=== PATIENT | male | born 1985 | race Caucasian/White ===

== ENCOUNTER 2024-04-26 08:04 | Outpatient (CLI) | payer OTHER | END 2024-04-26 08:05 | disposition home or self-care (01) | LOC: CSHWCC 08:04 | PROVIDERS: ATTEND Nurse Practitioner Family | DX: L97.811 Non-pressure chronic ulcer of other part of right lower leg limited to breakdown of skin (principal) | CPT/HCPCS: 11042; 99213; G0463 ==

== ENCOUNTER 2024-05-03 13:55 | Outpatient (CLI) | payer OTHER | END 2024-05-03 13:56 | disposition home or self-care (01) | LOC: CSHWCC 13:55 | PROVIDERS: ATTEND Nurse Practitioner Family | DX: L97.811 Non-pressure chronic ulcer of other part of right lower leg limited to breakdown of skin (principal) | CPT/HCPCS: 11042 ==

== ENCOUNTER 2024-05-10 15:31 | Outpatient (CLI) | payer OTHER | END 2024-05-10 15:32 | disposition home or self-care (01) | LOC: CSHWCC 15:31 | PROVIDERS: ATTEND Family Medicine | DX: L97.811 Non-pressure chronic ulcer of other part of right lower leg limited to breakdown of skin (principal) | CPT/HCPCS: 11042 ==

== ENCOUNTER 2024-05-17 16:18 | Outpatient (CLI) | payer OTHER | END 2024-05-17 16:19 | disposition home or self-care (01) | LOC: CSHWCC 16:18 | PROVIDERS: ATTEND Nurse Practitioner Family | DX: L97.811 Non-pressure chronic ulcer of other part of right lower leg limited to breakdown of skin (principal) | CPT/HCPCS: 11042; 99212; G0463 ==

== ENCOUNTER 2024-05-24 14:19 | Outpatient (CLI) | payer OTHER | END 2024-05-24 14:20 | disposition home or self-care (01) | LOC: CSHWCC 14:19 | PROVIDERS: ATTEND Nurse Practitioner Family | DX: L97.811 Non-pressure chronic ulcer of other part of right lower leg limited to breakdown of skin (principal) | CPT/HCPCS: 11042 ==

== ENCOUNTER 2024-05-31 14:02 | Outpatient (CLI) | payer OTHER | END 2024-05-31 14:03 | disposition home or self-care (01) | LOC: CSHWCC 14:02 | PROVIDERS: ATTEND Nurse Practitioner Family | DX: L97.811 Non-pressure chronic ulcer of other part of right lower leg limited to breakdown of skin (principal) | CPT/HCPCS: 11042 ==

== ENCOUNTER 2024-06-07 14:04 | Outpatient (CLI) | payer OTHER | END 2024-06-07 14:05 | disposition home or self-care (01) | LOC: CSHWCC 14:04 | PROVIDERS: ATTEND Nurse Practitioner Family | DX: L97.811 Non-pressure chronic ulcer of other part of right lower leg limited to breakdown of skin (principal) | CPT/HCPCS: 99212; G0463 ==

== ENCOUNTER 2024-07-09 14:35 | Outpatient (CLI) | payer OTHER | END 2024-07-09 14:36 | disposition home or self-care (01) | LOC: CSHWCC 14:35 | PROVIDERS: ATTEND Nurse Practitioner Family | DX: L97.811 Non-pressure chronic ulcer of other part of right lower leg limited to breakdown of skin (principal) | CPT/HCPCS: 11042; 99213; G0463 ==